=== PATIENT | male | born 1965 ===

== ENCOUNTER 2017-07-27 10:47 | Inpatient (IN) | payer BC, OTHER ==
[2017-07-27] MEDS ORDERED: Sodium Chloride 0.9% 1,000 ML IV STA (11:16)
[2017-07-27 12:34] LABS: BASO # 0.01 K/mm3 (0.0-2.0); BASO % 0.1 % (0.0-3.0); EOS # 0.1 (0.0-0.7); EOS % 1.2 % (1.5-5.0); GRAN # 5.33 (1.4-6.5); GRAN % 70.6 % (50.0-68.0); HEMOGLOBIN 17.8 g/dL (14.0-18.0); LYMPH # 1.2 (1.2-3.4); LYMPH % 16.4 % (22.0-35.0); MEAN CELL VOLUME 90.1 fl (80.0-105.0); MEAN CORPUSCULAR HEMOGLOBIN 31.1 pg (25.0-35.0); MEAN CORPUSCULAR HGB CONC 34.5 g/dl (31.0-37.0); MEAN PLATELET VOLUME 9.5 fl (7.0-11.0); MONO # 0.9 (0.1-0.6); MONO % 11.7 % (1.0-6.0); RBC 5.73 10^6/uL (3.5-6.1); RED CELL DISTRIBUTION WIDTH 13.6 % (11.5-14.5); WHITE BLOOD COUNT 7.6 10^3/ul (4.5-11.0)
[2017-07-27 13:46] LABS: URINE BILIRUBIN SMALL (NEGATIVE); URINE BLOOD SMALL (NEGATIVE); URINE GLUCOSE (UA) NEGATIVE (NEGATIVE); URINE LEUKOCYTE ESTERASE NEGATIVE Leu/uL (NEGATIVE); URINE NITRATE NEGATIVE (NEGATIVE); URINE PROTEIN 30 mg/dL (<30 mg/dL)
[2017-07-27 13:48] LABS: URINE APPEARANCE SL CLOUDY (CLEAR); URINE COLOR YELLOW (YELLOW)
[2017-07-27 13:56] LABS: URINE WBC NEGATIVE /hpf (0-6)
[2017-07-27 14:13] LABS: ALB/GLOB RATIO 1.3 (1.1-1.8); ALBUMIN 4.4 g/dL (3.0-4.8); ALT/SGPT 47 U/L (7-56); AMYLASE 62 U/L (35-125); AST/SGOT 31 U/L (17-59); BLOOD UREA NITROGEN 15 mg/dL (7-21); CALCIUM 9.9 mg/dL (8.4-10.5); GFR AFRICAN-AMERICAN > 60; GFR NON-AFRICAN AMERICAN > 60; LIPASE 27 U/L (23-300)
[2017-07-27] MEDS ORDERED: Iohexol 350 MG/100 ML VIAL ONE (14:17)
--- NOTE | 2017-07-27 15:09 | ED PDOC ---
Arrival/HPI - General Chief Complaint: Abdominal Pain Time Seen by Provider: 07/27/17 11:02 Historian: Patient - History of Present Illness Narrative History of Present Illness (Text): 07/27/17 11:12 A 52 year old male, whose past medical history includes kidney stones, presents to the emergency department complaining of mild diffused abdominal pain and distention for past couple days. Patient reports he went to see Urgent Care 2 days ago for dark urine and was told he has kidney stones. After being taken for Ultrasound, results showed no signs of kidney stones. He also notes experiencing nausea, but denies any hematuria, bloody stool, fever, or any other complaints. Also, patient is passing gas and stool, but in small amounts. No PMD Past Medical History - Provider Review Nursing Documentation Reviewed: Yes - Infectious Disease Hx of Infectious Diseases: None - Renal Hx Kidney Stones: Yes - Psychiatric Hx Substance Use: No Family/Social History - Physician Review Nursing Documentation Reviewed: Yes Family/Social History: No Known Family HX Smoking Status: Never Smoked Hx Alcohol Use: No Hx Substance Use: No Allergies/Home Meds Allergies/Adverse Reactions: Allergies No Known Allergies Allergy (Verified 07/27/17 22:32) Home Medications: Home Meds Medication Instructions Recorded Confirmed Cyclobenzaprine HCl 5 mg PO PRN PRN 07/27/17 07/27/17 [Cyclobenzaprine HCl] Naproxen [Naprosyn] 500 mg PO PRN PRN 07/27/17 07/27/17 Physical Exam Vital Signs Reviewed: Yes Vital Signs Temp Pulse Resp BP Pulse Ox 07/27/17 19:00 98 H 16 163/98 H 100 07/27/17 18:14 98.2 F 101 H 18 170/84 H 97 07/27/17 15:42 95 H 18 145/75 97 07/27/17 13:58 97.9 F 95 H 18 117/101 H 98 07/27/17 11:05 98 F 112 H 16 131/90 97 Temperature: Afebrile Blood Pressure: Normal Pulse: Regular Respiratory Rate: Normal Appearance: Positive for: Well-Appearing Pain Distress: None Mental Status: Positive for: Alert and Oriented X 3 - Systems Exam Respiratory/Chest: Present: Clear to Auscultation, Good Air Exchange. No: Respiratory Distress, Accessory Muscle Use Cardiovascular: Present: Regular Rate and Rhythm, Normal S1, S2. No: Murmurs Abdomen: Present: Tenderness (minimally diffused tenderness), Distention, Normal Bowel Sounds Back: No: CVA Tenderness Medical Decision Making ED Course and Treatment: 07/27/17 11:16 Impression: 52 year old male with mild diffused abdominal pain. Physical exam shows abdomen distended, normal bowel sounds, and minimally diffused tenderness ; no CVA tenderness. Plan: -- Abd/Pelvis CT -- Labs -- Urine Culture -- Reassess and disposition Progress Notes: 07/27/2017 15:34 Abd/Pelvis CT IMPRESSION: Minor bibasilar atelectasis and/or infiltrate changes. There are a multiple small low-attenuation foci scattered throughout the hepatic parenchyma too small characterize; rule out small cysts or hemangiomas. Follow-up CT scan at interval could be performed to assess stability. Suspect minimal fatty hepative infiltration. Multiple distended loops of small bowel some of which exhibit minimal wall thickening with several on loops of collapsed distal small bowel. Findings could represent mild small-bowel obstruction. Surgical consultation recommended. Rule out enteritis with secondary ileus. Follow-up plain film radiographs in 6 hours of could be performed to assess for passage of oral contrast material into the colon. Note also that the appendix is not seen with any certainty. There is small amount of free seen in the pelivs. Two small low-attenuation foci left kidney (too small characterize). Rule out the small hyperdense cyst. Follow-up ultrasound could be performed to exclude any fracisco components. There is also small amount of pernephic fluid upper pole right kidney. Dictator: Angel Su MD - Lab Interpretations Lab Results: 07/27/17 12:15 07/27/17 12:50 Lab Results 07/27/17 13:30: Urine Color Yellow, Urine Appearance Sl cloudy, Urine pH 6.0, Ur Specific [place] 1.025, Urine Protein 30 H, Urine Glucose (UA) Negative, Urine Ketones >=80, Urine Blood Small H, Urine Nitrate Negative, Urine Bilirubin Small H, Urine Urobilinogen 1.0 H, Ur Leukocyte Esterase Negative, Urine RBC 2 - 5, Urine WBC Negative, Urine Other Mucus 07/27/17 12:50: Sodium 139, Potassium 3.7, Chloride 97 L, Carbon Dioxide 29, Anion Gap 17, BUN 15, Creatinine 0.8, Est GFR ( Amer) > 60, Est GFR (Non- Af Amer) > 60, Random Glucose 129 H, Calcium 9.9, Total Bilirubin 0.9, AST 31, ALT 47, Alkaline Phosphatase 76, Total Protein 7.9, Albumin 4.4, Globulin 3.5, Albumin/Globulin Ratio 1.3, Amylase 62, Lipase 27 07/27/17 12:15: WBC 7.6, RBC 5.73, Hgb 17.8, Hct 51.6, MCV 90.1, MCH 31.1, MCHC 34.5, RDW 13.6, Plt Count 254, MPV 9.5, Gran % 70.6 H, Lymph % (Auto) 16.4 L, [place] % (Auto) 11.7 H, Eos % (Auto) 1.2 L, Baso % (Auto) 0.1, Gran # 5.33, Lymph # 1.2, [place] # 0.9 H, Eos # 0.1, Baso # 0.01 I have reviewed the lab results: Yes - RAD Interpretation Radiology Orders: 07/27/17 11:16 ABD PELVIS PO & IV CONTRAST [CT] Stat - Medication Orders Current Medication Orders: Benzocaine/Menthol (Cepacol Sore Throat) 1 farshad MT Q2H PRN PRN Reason: Sore Throat Last Admin: 07/27/17 18:33 Dose: 1 farshad Lactated Ringer's (Lactated Ringer's) 1,000 mls @ 100 mls/hr IV .Q10H BERNARDO Last Admin: 07/27/17 18:14 Dose: 100 mls/hr eMAR Start Stop Document 07/27/17 18:14 SRE (Rec: 07/27/17 18:14 SRE [id number]) Intravenous Solution Start Date 07/27/17 Start Time 18:15 Discontinued Medications Sodium Chloride (Sodium Chloride 0.9%) 1,000 mls @ 1,000 mls/hr IV .Q1H STA Stop: 07/27/17 12:15 Last Admin: 07/27/17 11:56 Dose: 1,000 mls/hr eMAR Start Stop Document 07/27/17 11:56 [place] (Rec: 07/27/17 11:57 [place] [id number] Intravenous Solution Start Date 07/27/17 Start Time 11:57 Lactated Ringer's (Lactated Ringer's) 1,000 mls @ 75 mls/hr IV .[id number] [facility] Ondansetron HCl (Zofran Inj) 4 mg IVP STAT STA Stop: 07/27/17 11:17 Last Admin: 07/27/17 11:57 Dose: 4 mg IVP Administration Document 07/27/17 11:57 [place] (Rec: 07/27/17 11:57 [facility] [place] [facility] [id number] Charges for Administration # of IVP Administrations 1 - Scribe Statement The provider has reviewed the documentation as recorded by the Ángelibe Latha Bowman Provider Scribe Attestation: All medical record entries made by the Scribe were at my direction and personally dictated by me. I have reviewed the chart and agree that the record accurately reflects my personal performance of the history, physical exam, medical decision making, and the department course for this patient. I have also personally directed, reviewed, and agree with the discharge instructions and disposition. Disposition/Present on Arrival - Present on Arrival Any Indicators Present on Arrival: No History of DVT/PE: No History of Uncontrolled Diabetes: No Urinary Catheter: No History of Decub. Ulcer: No History Surgical Site Infection Following: None - Disposition Have Diagnosis and Disposition been Completed?: Yes Diagnosis: Abdominal pain, Abdominal distention Disposition: HOSPITALIZED Disposition Time: 15:30 Condition: STABLE
--- NOTE | 2017-07-27 15:35 | CT ---
PROCEDURE: CT scan abdomen pelvis 07/27/2017 HISTORY: Abdominal al distention- diffuse a abdominal tenderness COMPARISON: No prior study available for comparison TECHNIQUE: Contiguous axial images of the abdomen abdomen pelvis performed following oral and intravenous injection of approximately 100 cc Omnipaque 350 contrast material. Additional sagittal and coronal reformats generated. Radiation dose: Total exam DLP = 681.38 mGy-cm. This CT exam was performed using one or more of the following dose reduction techniques: Automated exposure control, adjustment of the mA and/or kV according to patient size, and/or use of iterative reconstruction technique. FINDINGS: LOWER THORAX: Scattered areas of atelectasis and or scarring both lung bases. . No effusion. No evidence of basilar pneumothorax. LIVER: The liver exhibits normal size measuring nearly 17 cm in CC dimension. The suspect minor diffuse fatty hepatic infiltration. There are several subcentimeter round/elliptical shaped foci of low attenuation scattered throughout the hepatic parenchyma too small to characterize. Foci may represent tiny cysts or hemangiomas. Followup interval recommended to assess stability. Portal and splenic veins are opacified GALLBLADDER AND BILE DUCTS: Gallbladder is physiologically distended. No evidence intraluminal gallbladder calculi. PANCREAS: Unremark the pancreas is somewhat atrophic and slightly fatty replaced. No obvious pancreatic masses collections or calcifications. SPLEEN: Spleen exhibits normal size and attenuation pattern without mass collection or calcification. ADRENALS: No adrenal lesions. . KIDNEYS AND URETERS: Kidneys demonstrate relatively symmetric nephrograms. No evidence of nephrolithiasis or hydronephrosis. . Small amount of right-sided perinephric fluid upper pole right kidney nonspecific. There are 2 small low-attenuation foci seen left kidney 1 in the posterolateral cortex mid to lower pole measuring 6.4 mm and another anterior midpole measuring approximately 6.2 mm too small to characterize though Hounsfield units range in the mid 20s and mid lower 50s respectively. Findings could represent hyperdense cysts however solid lesions cannot be excluded. Followup ultrasound recommended to exclude any solid components. BLADDER: Urinary bladder is incompletely distended which presumably accounts for slight thick-walled appearance. Cystitis would be less likely in a male patient no not completely excluded. Recommend correlation urinalysis. REPRODUCTIVE: Prostate gland measures approximately 3.9 cm in transverse dimension. APPENDIX: The appendix in not seen with complete certainty. BOWEL: Evaluation of the bowel is somewhat limited due to incomplete opacification. The stomach is markedly distended obtaining the liquid contrast material and air. Multiple distended loops of small bowel some of which exhibit minimal wall thickening with several on loops of collapsed distal small bowel. Several loops of distended small bowel exhibit what are felt to represent air within valulae conniventes and not pneumatosis intestinalis. Findings could represent mild small-bowel obstruction. Surgical consultation recommended. Rule out enteritis with secondary ileus. Followup plain film radiographs in 6 hours of could be performed to assess for passage of oral contrast material into the colon. . Note also that the appendix is not seen with any certainty. No definitive mural wall thickening of the colon. PERITONEUM: Ascites is present within the pelvis which is abnormal in a male patient. . LYMPH NODES: Unremarkable. No enlarged lymph nodes. VASCULATURE: Unremarkable. No aortic aneurysm. BONES: Minor multilevel degenerative spondylosis of the lower thoracic and lumbar spine. OTHER FINDINGS: None. IMPRESSION: Minor bibasilar atelectasis and or infiltrate changes. There are a multiple small low-attenuation foci scattered throughout the hepatic parenchyma too small characterize; rule out small cysts or hemangiomas. Followup the CT scan at interval could be performed to assess stability. Suspect minimal fatty hepatic infiltration. Multiple distended loops of small bowel some of which exhibit minimal wall thickening with several on loops of collapsed distal small bowel. . Findings could represent mild small-bowel obstruction. Surgical consultation recommended. Rule out enteritis with secondary ileus. Followup plain film radiographs in 6 hours of could be performed to assess for passage of oral contrast material into the colon. . Note also that the appendix is not seen with any certainty. There is small amount of free fluid seen in the pelvis Two small low-attenuation foci left kidney (too small characterize). Rule out the small hyperdense cyst. Followup ultrasound could be performed to exclude any solid components. There is also small amount of perinephric fluid upper pole right kidney. . Findings discussed with Dr. Rao at approximately 3:30 p.m. with written down and read back verification.
--- NOTE | 2017-07-27 16:26 | CP.PCM.CON ---
History of Present Illness - History of Present Illness History of Present Illness: 52 year old male with no past medical history except for shingles or abdominal surgeries who presents with 3 days of worsening abdominal distension, right sided flank pain, chills, increased bloating, anorexia, some diarrhea, and difficulty passing bowel movements and flatus. He reports his symptoms started on Tuesday after eating home-cooked hamburgers. He reports going to an urgent care on Tuesday and being diagnosed with kidney stones based on his UA, though they performed an US that did not identify any stones in the kidney/ureters, and informed him that he likely already passed a kidney stone. He was given an IM shot of something for pain and sent home with Flexeril and an NSAID. He reports having similar episodes of abdominal distension in the past that he was able to overcome by forcefully passing gas. This time, however, he is far more concerned given his inability to pass much gas, and having reflux/heart burn like symptoms which he has never experienced in the past He admits to passing his BM regularly, first thing in the morning everyday. He denies fever, chills, weight-loss. 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[employer]), denies tobacco or illicit drug use, admits to drinking alcoholly social Review of Systems - Review of Systems All systems: reviewed and no additional remarkable complaints except Review of Systems: as per hpi Past Patient History - Infectious Disease Hx of Infectious Diseases: None - Past Social History Smoking Status: Never Smoked - RENAL Hx Kidney Stones: Yes - PSYCHIATRIC Hx Substance Use: No - SURGICAL HISTORY Hx Surgeries: No Meds Allergies/Adverse Reactions: Allergies Allergy/AdvReac Type Severity Reaction Status Date / Time No Known Allergies Allergy Verified 07/27/17 11:09 Physical Exam - Constitutional Appears: Non-toxic - Head Exam Head Exam: ATRAUMATIC, NORMOCEPHALIC - Eye Exam Eye Exam: EOMI, Normal appearance. absent: Scleral icterus - ENT Exam ENT Exam: Mucous Membranes Moist, Normal Oropharynx - Neck Exam Neck exam: Positive for: Normal Inspection - Respiratory Exam Respiratory Exam: NORMAL BREATHING PATTERN. absent: Accessory Muscle Use - Cardiovascular Exam Cardiovascular Exam: Tachycardia, RRR, +S1, +S2 - GI/Abdominal Exam GI & Abdominal Exam: Distended, Firm. absent: Guarding - Extremities Exam Extremities exam: Positive for: normal inspection, pedal pulses present. Negative for: calf tenderness, pedal edema - Back Exam Back exam: NORMAL INSPECTION. absent: CVA tenderness (L), CVA tenderness (R) - Neurological Exam Neurological exam: Alert, CN II-XII Intact, Oriented x3 - Psychiatric Exam Psychiatric exam: Normal Affect, Normal Mood - Skin Skin Exam: Dry, Intact, Normal Color, Warm Results - Vital Signs Recent Vital Signs: Last Vital Signs Temp 97.9 F 07/27/17 13:58 Pulse 95 H 07/27/17 15:42 Resp 18 07/27/17 15:42 BP 145/75 07/27/17 15:42 Pulse Ox 97 07/27/17 15:42 - Labs Result Diagrams: 07/27/17 12:15 07/27/17 12:50 Labs: Laboratory Results - last 24 hr 07/27/17 07/27/17 07/27/17 12:15 12:50 13:30 WBC 7.6 RBC 5.73 Hgb 17.8 Hct 51.6 MCV 90.1 MCH 31.1 MCHC 34.5 RDW 13.6 Plt Count 254 MPV 9.5 Gran % 70.6 H Lymph % (Auto) 16.4 L [place] % (Auto) 11.7 H Eos % (Auto) 1.2 L Baso % (Auto) 0.1 Gran # 5.33 Lymph # 1.2 [place] # 0.9 H Eos # 0.1 Baso # 0.01 Sodium 139 Potassium 3.7 Chloride 97 L Carbon Dioxide 29 Anion Gap 17 BUN 15 Creatinine 0.8 Est GFR ( Amer) > 60 Est GFR (Non-Af Amer) > 60 Random Glucose 129 H Calcium 9.9 Total Bilirubin 0.9 AST 31 ALT 47 Alkaline Phosphatase 76 Total Protein 7.9 Albumin 4.4 Globulin 3.5 Albumin/Globulin Ratio 1.3 Amylase 62 Lipase 27 Urine Color Yellow Urine Appearance Sl cloudy Urine pH 6.0 Ur Specific [place] 1.025 Urine Protein 30 H Urine Glucose (UA) Negative Urine Ketones >=80 Urine Blood Small H Urine Nitrate Negative Urine Bilirubin Small H Urine Urobilinogen 1.0 H Ur Leukocyte Esterase Negative Urine RBC 2 - 5 Urine WBC Negative Urine Other Mucus Assessment & Plan - Assessment and Plan (Free Text) Assessment: 52 year old male with no significant past medical history who presents with 3 days of nausea, abdominal distension, difficulty passing flatus, and recently diagnosed with kidney stones. CT abdomen and pelvis showed dilated loops of small bowel and in the stomach. Plan: - NGT placed, fluid drained, 400 mL plus fluid drained - Cepacol PRN - Zofran PRN - Case discussed with attending, Dr. Christianson - Date & Time Date: 07/27/17 Time: 05:00
[2017-07-27] MEDS ORDERED: Lactated Ringer's 1,000 ML IV SCH (17:45)
[2017-07-27] MEDS: Lactated Ringer's 1,000 ML IV SCH (18:14)
[2017-07-27] MEDS: Benzocaine/Menthol (Cepacol) Lozenge MT PRN (18:33)
[2017-07-27 23:24] VITALS: BMI 26.6
[2017-07-27] MEDS ORDERED: Pneumococcal 23-Valent Vaccine IM ONE (23:24)
[2017-07-27] MEDS ORDERED: Influenza Vaccine 60 mcg/0.5 mL SYR (4YR UP) IM ONE (23:24)
[2017-07-28] MEDS: Benzocaine/Menthol (Cepacol) Lozenge MT PRN (01:56)
[2017-07-28] MEDS: Lactated Ringer's 1,000 ML IV SCH (04:00)
[2017-07-28 07:06] LABS: BASO # 0.02 K/mm3 (0.0-2.0); BASO % 0.4 % (0.0-3.0); EOS # 0.1 (0.0-0.7); EOS % 2.5 % (1.5-5.0); GRAN # 3.01 (1.4-6.5); GRAN % 58.6 % (50.0-68.0); LYMPH # 1.2 (1.2-3.4); LYMPH % 23.9 % (22.0-35.0); MEAN CELL VOLUME 91.9 fl (80.0-105.0); MEAN CORPUSCULAR HEMOGLOBIN 30.1 pg (25.0-35.0); MEAN CORPUSCULAR HGB CONC 32.8 g/dl (31.0-37.0); MEAN PLATELET VOLUME 9.3 fl (7.0-11.0); MONO # 0.8 (0.1-0.6); MONO % 14.6 % (1.0-6.0); RBC 4.68 10^6/uL (3.5-6.1); RED CELL DISTRIBUTION WIDTH 13.6 % (11.5-14.5); WHITE BLOOD COUNT 5.1 10^3/ul (4.5-11.0)
[2017-07-28 07:18] LABS: HEMOGLOBIN 14.1 g/dL (14.0-18.0)
[2017-07-28 07:35] LABS: BLOOD UREA NITROGEN 11 mg/dL (7-21); GFR AFRICAN-AMERICAN > 60; GFR NON-AFRICAN AMERICAN > 60
[2017-07-28 08:38] VITALS: RESP 20
--- NOTE | 2017-07-28 09:18 | CP.PCM.HP ---
History of Present Illness - History of Present Illness History of Present Illness: 52 year old male with a past medical history significant for shingles and hemmorhoids who presents with 3 days of worsening abdominal distension, right sided flank pain, chills, and difficulty passing bowel movements and flatus. He reports his symptoms started on Tuesday after eating home-cooked hamburgers. He reports going to an urgent care on Tuesday and being diagnosed with kidney stones based on his UA. He states he was then recommended to go to an imaging center where he went an obtained an ultrasound that did not identify any stones in the kidney/ureters, and was informed that he likely already passed a kidney stone. He was sent home with Flexeril and an NSAID. His symptoms, however, persisted, and he came to [facility] [place]. He reports having similar episodes of abdominal distension in the past that normally resolved by forcefully passing gas. This time, however, he is far more concerned given his inability to pass gas and new-onset heart burn like symptoms which he has never experienced. He states passing bowel movements, regularly, first thing every morning. He also admits to nausea, decreased appetite, and orange-colored urine. He denies fever, chills, weight-loss, hemotochezia. 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 Present on Admission - Present on Admission Any Indicators Present on Admission: No Review of Systems - Constitutional Constitutional: Anorexia, Chills. absent: Night Sweats, Weight Loss - EENT Eyes: absent: Decreased Night Vision, Itchy Eyes, Loss of Peripheral Vision Ears: absent: Ear Pain, Tinnitus, Dizziness Nose/Mouth/Throat: absent: Post Nasal Drip, Sinus Pressure, Bleeding Gums - Cardiovascular Cardiovascular: absent: Chest Pain, Diaphoresis, Dyspnea - Respiratory Respiratory: absent: Dyspnea, Pain with Coughing - Gastrointestinal Gastrointestinal: Bloating, Change in Stool Character, Dyspepsia, Excessive Flatus - Genitourinary Genitourinary: Voiding Freq/Small Amts - Musculoskeletal Musculoskeletal: absent: Muscle Cramps, Muscle Weakness - Integumentary Integumentary: absent: Non-Healing Lesions, Photosensitivity, Jaundice - Neurological Neurological: absent: Abnormal Gait, Behavioral Changes, Burning Sensations, Focal Weakness - Psychiatric Psychiatric: absent: Abnormal Sleep Pattern, Behavioral Changes, Depression - Endocrine Endocrine: Fatigue. absent: Change in Body Appearance, Change in Libido - Hematologic/Lymphatic Hematologic: absent: Easy Bleeding, Easy Bruising Past Patient History - Infectious Disease Hx of Infectious Diseases: None - Past Social History Smoking Status: Never Smoked - CARDIAC Hx Cardiac Disorders: No - PULMONARY Hx Respiratory Disorders: No - NEUROLOGICAL Hx Neurological Disorder: No - HEENT Hx HEENT Problems: No - RENAL Hx Chronic Kidney Disease: Yes Hx Kidney Stones: Yes - ENDOCRINE/METABOLIC Hx Endocrine Disorders: No - HEMATOLOGICAL/ONCOLOGICAL Hx Blood Disorders: Yes Hx Shingles: Yes (06/2017) - INTEGUMENTARY Hx Dermatological Problems: Yes Other/Comment: 07-27-17 scarring from shingles 06-19 - MUSCULOSKELETAL/RHEUMATOLOGICAL Hx Musculoskeletal Disorders: No Hx Falls: No - GASTROINTESTINAL Hx Gastrointestinal Disorders: Yes (fluid filled loops of small bowel in the stomach.ileus?enteritis?) - GENITOURINARY/GYNECOLOGICAL Hx Genitourinary Disorders: No - PSYCHIATRIC Hx Psychophysiologic Disorder: No Hx Substance Use: No - SURGICAL HISTORY Hx Surgeries: Yes (right shoulder athroscopy.) Meds Allergies/Adverse Reactions: Allergies Allergy/AdvReac Type Severity Reaction Status Date / Time No Known Allergies Allergy Verified 07/27/17 23:00 Physical Exam - Constitutional Appears: Non-toxic - Head Exam Head Exam: ATRAUMATIC, NORMOCEPHALIC - Eye Exam Eye Exam: EOMI, Normal appearance - ENT Exam ENT Exam: Mucous Membranes Moist, Normal Oropharynx - Neck Exam Neck exam: Positive for: Normal Inspection. Negative for: Lymphadenopathy - Respiratory Exam Respiratory Exam: Wheezes (scattered), NORMAL BREATHING PATTERN. absent: Accessory Muscle Use - Cardiovascular Exam Cardiovascular Exam: Tachycardia, +S1, +S2 - GI/Abdominal Exam GI & Abdominal Exam: Distended, Normal Bowel Sounds. absent: Guarding, Rebound - Rectal Exam Rectal Exam: Deferred - Extremities Exam Extremities exam: Positive for: normal inspection. Negative for: calf tenderness - Back Exam Back exam: NORMAL INSPECTION. absent: CVA tenderness (L), CVA tenderness (R) - Neurological Exam Neurological exam: Alert, CN II-XII Intact, Oriented x3 - Psychiatric Exam Psychiatric exam: Normal Affect, Normal Mood - Skin Skin Exam: Dry, Intact, Normal Color, Warm Results - Vital Signs Recent Vital Signs: Last Vital Signs Temp 97.4 F L 07/28/17 08:37 Pulse 91 H 07/28/17 08:37 Resp 20 07/28/17 08:37 BP 130/82 07/28/17 08:37 Pulse Ox 95 07/28/17 08:37 - Labs Result Diagrams: 07/28/17 06:00 07/28/17 06:00 Labs: Laboratory Results - last 24 hr 07/28/17 07/28/17 07/28/17 06:00 06:00 07:52 WBC 5.1 D RBC 4.68 Hgb 14.1 D Hct 43.0 MCV 91.9 MCH 30.1 MCHC 32.8 RDW 13.6 Plt Count 237 MPV 9.3 Gran % 58.6 Lymph % (Auto) 23.9 [place] % (Auto) 14.6 H Eos % (Auto) 2.5 Baso % (Auto) 0.4 Gran # 3.01 Lymph # 1.2 [place] # 0.8 H Eos # 0.1 Baso # 0.02 Sodium 140 Potassium 3.9 Chloride 101 Carbon Dioxide 29 Anion Gap 15 BUN 11 Creatinine 0.8 Est GFR ( Amer) > 60 Est GFR (Non-Af Amer) > 60 POC Glucose (mg/dL) 103 Random Glucose 105 Calcium 9.0 Assessment & Plan - Assessment and Plan (Free Text) Assessment: 52 year old male with a past medical history significant for shingles and hemmorhoids who presents with 3 days of worsening abdominal distension, right sided flank pain, chills, and difficulty passing bowel movements and flatus. CT abdomen and pelvis showed findings concerning for SBO. Plan: 1) Small bowel obstruction versus adynamic illeus - NGT placement placed, greater than 400 mL of tea-colored fluid obtained immediately - Serial abdominal exams - Vital Signs q4h - Anti-emetic/analgesic PRN 2) Nephrolithiasis - Consider abdominal US to look at kidney, ureters, bladder once bowel is less distended - Consider 0.4 mg Tamsulosin to encourage calculi - Strain urine for calculi 3) DVT prophylaxis - Sequential compression device
--- NOTE | 2017-07-28 09:22 | CP.PCM.PN ---
Subjective - Date & Time of Evaluation Date of Evaluation: 07/28/17 Time of Evaluation: 08:05 - Subjective Subjective: General Surgery Progress Note for Dr. Christianson Patient seen and examined at bedside. Patient reports having one bowel movement at 9:00 PM. Also reports passing flatus, but complains of the right sided flank pain and chills overnight. He reports decreased urination and denies passing any stones in his urine. He report that his abdominal distention has decreased significantly and during the day had an episode of diarrhea. Since admission, patient's NG output is estimated to be 1,400 mL of tea-colored fluid. Objective - Vital Signs/Intake and Output Vital Signs (last 24 hours): Temp Pulse Resp BP Pulse Ox 97.4 F L 91 H 20 130/82 95 07/28/17 08:37 07/28/17 08:37 07/28/17 08:37 07/28/17 08:37 07/28/17 08:37 - Medications Medications: Current Medications Benzocaine/Menthol (Cepacol Sore Throat) 1 farshad MT Q2H PRN PRN Reason: Sore Throat Last Admin: 07/28/17 01:56 Dose: 1 farshad Lactated Ringer's (Lactated Ringer's) 1,000 mls @ 100 mls/hr IV .Q10H BERNARDO Last Admin: 07/28/17 04:00 Dose: 100 mls/hr - Labs Labs: 07/28/17 06:00 07/28/17 06:00 - Constitutional Appears: Non-toxic - Head Exam Head Exam: ATRAUMATIC, NORMOCEPHALIC - Eye Exam Eye Exam: EOMI, Normal appearance - ENT Exam ENT Exam: Mucous Membranes Dry, Normal Oropharynx - Neck Exam Neck Exam: Normal Inspection - Respiratory Exam Respiratory Exam: Prolonged Expiratory Phase, NORMAL BREATHING PATTERN. absent : Accessory Muscle Use - Cardiovascular Exam Cardiovascular Exam: Tachycardia, +S1, +S2 - GI/Abdominal Exam GI & Abdominal Exam: Soft, Hypoactive Bowel Sounds. absent: Guarding, Rebound - Extremities Exam Extremities Exam: Normal Capillary Refill, Normal Inspection. absent: Calf Tenderness - Back Exam Back Exam: NORMAL INSPECTION. absent: CVA tenderness (L), CVA tenderness (R) - Neurological Exam Neurological Exam: Alert, Awake, Oriented x3 - Psychiatric Exam Psychiatric exam: Normal Affect, Normal Mood - Skin Skin Exam: Dry, Intact, Normal Color, Warm Assessment and Plan - Assessment and Plan (Free Text) Assessment: 52 year old with SBO versus adynamic illeus Plan: 1) Small bowel obstruction versus adynamic illeus - NGT decompression, greater than 1.4 L overnight - pt clincally improved, will clamp NGT and advance diet as tolerated 2) Possible nephrolithiasis - Zofran 4 mg q4h PRN for nausea - Toradol 30 mg q4h PRN for severe pain 3) DVT prophylaxis - Sequential compression device Case discussed with attending, Dr. Christianson.
[2017-07-28] MEDS: Dextrose 5%/0.45% NS 1,000 ML IV SCH (16:06)
[2017-07-28] MEDS ORDERED: DiphenhydrAMINE 12.5 mg/5 ml LIQ UD (5 ml) PO PRN (17:02)
[2017-07-29 07:07] LABS: BASO # 0.08 K/mm3 (0.0-2.0); BASO % 1.4 % (0.0-3.0); EOS # 0.1 (0.0-0.7); EOS % 2.5 % (1.5-5.0); GRAN # 3.27 (1.4-6.5); GRAN % 57.9 % (50.0-68.0); HEMOGLOBIN 14.1 g/dL (14.0-18.0); LYMPH # 1.3 (1.2-3.4); LYMPH % 22.1 % (22.0-35.0); MEAN CELL VOLUME 91.9 fl (80.0-105.0); MEAN CORPUSCULAR HGB CONC 32.6 g/dl (31.0-37.0); MEAN PLATELET VOLUME 9.2 fl (7.0-11.0); MONO # 0.9 (0.1-0.6); MONO % 16.1 % (1.0-6.0); RBC 4.7 10^6/uL (3.5-6.1); RED CELL DISTRIBUTION WIDTH 13.1 % (11.5-14.5); WHITE BLOOD COUNT 5.7 10^3/ul (4.5-11.0)
[2017-07-29] MEDS: Dextrose 5%/0.45% NS 1,000 ML IV SCH (07:13)
[2017-07-29 07:44] LABS: ALB/GLOB RATIO 1.3 (1.1-1.8); ALBUMIN 3.5 g/dL (3.0-4.8); ALT/SGPT 37 U/L (7-56); AST/SGOT 25 U/L (17-59); BLOOD UREA NITROGEN 7 mg/dL (7-21); CALCIUM 9.3 mg/dL (8.4-10.5); GFR AFRICAN-AMERICAN > 60; GFR NON-AFRICAN AMERICAN > 60
--- NOTE | 2017-07-29 10:34 | RAD ---
HISTORY: Evaluate small bowel obstruction. COMPARISON: 07/27/2013 CT abdomen and pelvis. Summary of findings on the comparison examination: Multiple distended loops of small bowel with distal collapsed small bowel consistent with small bowel obstruction. FINDINGS: BOWEL: Persistent dilatation of proximal and mid small bowel loops. Thickening of the bowel wall, edema of again identified. However, the degree of distention of distal small bowel loops has improved in the colon, filled with contrast from prior CT scan, is decompressed BONES: Normal. OTHER FINDINGS: . Nasogastric tube in the in the stomach which is decompressed. IMPRESSION: Interval improvement without resolution of small bowel obstruction
[2017-07-29] MEDS ORDERED: Potassium Chloride 20 mEq ER Tab PO ONE (11:08)
[2017-07-29] MEDS ORDERED: Sodium Chloride 0.9% 1,000 ML IV SCH (11:15)
--- NOTE | 2017-07-29 11:24 | CP.PCM.PN ---
Subjective - Date & Time of Evaluation Date of Evaluation: 07/29/17 Time of Evaluation: 07:45 - Subjective Subjective: General surgery Progress Note for Dr. Christianson Patient seen and examined at bedside. Patient is passing bowel movements, reports increase in urination, tolerated clear liquids, and reports feeling similar right-sided flank pain. Patient denies nausea, vomiting, diarrhea, or hemaotchezia. Nurse report no events overnight. Objective - Vital Signs/Intake and Output Vital Signs (last 24 hours): Temp Pulse Resp BP Pulse Ox 98.9 F 81 20 128/89 96 07/29/17 06:00 07/29/17 06:00 07/29/17 06:00 07/29/17 06:00 07/29/17 06:00 Intake and Output: 07/29/17 07/29/17 06:59 18:59 Intake Total 620 Output Total 600 Balance 20 - Medications Medications: Current Medications Acetaminophen (Tylenol 325mg Tab) 650 mg PO Q6H PRN PRN Reason: Fever >100.4 F Benzocaine/Menthol (Cepacol Sore Throat) 1 farshad MT Q2H PRN PRN Reason: Sore Throat Last Admin: 07/28/17 01:56 Dose: 1 farshad Diphenhydramine HCl (Benadryl) 12.5 mg PO HS PRN PRN Reason: Insomnia Sodium Chloride (Sodium Chloride 0.9%) 1,000 mls @ 100 mls/hr IV .Q10H BERNARDO Ketorolac Tromethamine (Toradol) 30 mg IVP Q4H PRN PRN Reason: Pain, severe (8-10) Ondansetron HCl (Zofran Inj) 4 mg IVP Q4H PRN PRN Reason: Nausea/Vomiting - Labs Labs: 07/29/17 06:00 07/29/17 06:00 - Constitutional Appears: Well, Non-toxic - Head Exam Head Exam: ATRAUMATIC, NORMOCEPHALIC - Eye Exam Eye Exam: EOMI, Normal appearance, PERRL - ENT Exam ENT Exam: Mucous Membranes Moist, Normal Oropharynx - Respiratory Exam Respiratory Exam: Clear to Ausculation Bilateral, NORMAL BREATHING PATTERN - Cardiovascular Exam Cardiovascular Exam: Tachycardia, +S1, +S2 - GI/Abdominal Exam GI & Abdominal Exam: Distended. absent: Tenderness, Rebound - Extremities Exam Extremities Exam: Normal Capillary Refill, Normal Inspection - Back Exam Back Exam: absent: CVA tenderness (L), CVA tenderness (R) - Neurological Exam Neurological Exam: Alert, Awake, CN II-XII Intact, Oriented x3 - Psychiatric Exam Psychiatric exam: Normal Affect, Normal Mood - Skin Skin Exam: Dry, Intact, Normal Color, Warm Assessment and Plan - Assessment and Plan (Free Text) Assessment: 52 year old with no past medical history who presents with 3 days of abdominal distension, difficulty passing flatus, and right sided flank pain. Plan: - NGT removed 1.4 L of fluid - Upright abdominal film shows interval improvement without resolution of small bowel obstruction - Patient tolerated clear and full liquid diet; passing formed bowel movements and flatus; clinically, has improved, but does complain of right-sided flank pain, and increased urination. -GI consulted, will follow up with recommendations
--- NOTE | 2017-07-29 15:46 | CP.PCM.CON ---
<Melly Feliciano - Last Filed: 07/29/17 15:40> History of Present Illness - History of Present Illness History of Present Illness: Seen and examined at the bedside earlier today, chart reviewed. Request for GI consult is for SBO, adynamic ileus evaluation for colon/EGD. HPI: This is a 52-year-old male with a medical history of shingles from hemorrhoids came to the emergency room with complaints of worsening abdominal distention and right-sided flank pain 3 days. The patient also complained of having chills and difficulty having bowel movement and flatus. The patient states that his symptoms started on Tuesday, he recalled eating home-cooked hamburgers but stated that his family members ate the same and they are okay. He went to urgent care on Tuesday and was told he had kidney stones after urinalysis. He was sent home on Flexeril and NSAIDs which he hasn't taken and was recommended to have an ultrasound which was negative for renal stones. His pain did not subside and came to [facility] for further evaluation. The patient states that he usually moves his bowels regular, occasionally may notice some blood, states that he has history of hemorrhoids and that his stool was hard at 1. secondary to his dietary intake. Since his admission he has had bowel movements that are formed, his last bowel movement was yesterday he has not noted any blood. His last episode of noting blood was a week ago. He reports that initially prior to admission he was having difficulty passing urine and now he is having increased urine output. He is straining and urine. He denies any dysuria, hesitancy or hematuria. patient also complaining of recent heartburn, he states that this started with his current complaints otherwise he has never experienced this before. No current nausea or vomiting, he is tolerating the clear liquids. He still complaining of abdominal distention but states that it is much improved since he came to the hospital. His last colonoscopy was about 5 years ago, this was done in short pills, he is not certain of the machine cell tuber but does not recall any findings such as polyps. Denies having endoscopy. On admission he had a CT scan of abdomen and pelvis with IV and oral contrast and this showed multiple distended loops of the small bowel with some minimal wall thickening with several loops of collapsed distal small bowel findings could represent mild small bowel obstruction, rule out enteritis with secondary ileus. He has also noted to have 2 small low attenuation foci left kidney rule out small hyperdense cyst.this patient had a abdominal x-ray yesterday and that showed internal improvement but no resolution of the small bowel obstruction. Past medical history: Shingles, hemorrhoidsnone Surgical history: Denies cardiac or abdominal surgery, right shoulder arthroscopy surgery, colonoscopies 3, most recent was 5 years agodenies any history of colon polyps Allergies: No known drug allergies Family history: Colon cancer: Father's brother/mother's brother, mother history of small bowel obstruction needing surgery, hypertension dyslipidemia Social history: Denies tobacco use, Noe alcohol socially, denies recreational drug use Medications: Reviewed as per MAR ROS: Systems reviewed and positive findings see HPI Past Patient History - Infectious Disease Hx of Infectious Diseases: None - Past Social History Smoking Status: Never Smoked - CARDIAC Hx Cardiac Disorders: No - PULMONARY Hx Respiratory Disorders: No - NEUROLOGICAL Hx Neurological Disorder: No - HEENT Hx HEENT Problems: No - RENAL Hx Chronic Kidney Disease: Yes Hx Kidney Stones: Yes - ENDOCRINE/METABOLIC Hx Endocrine Disorders: No - HEMATOLOGICAL/ONCOLOGICAL Hx Blood Disorders: Yes Hx Shingles: Yes (06/2017) - INTEGUMENTARY Hx Dermatological Problems: Yes Other/Comment: 07-27-17 scarring from shingles 06-19 - MUSCULOSKELETAL/RHEUMATOLOGICAL Hx Musculoskeletal Disorders: No Hx Falls: No - GASTROINTESTINAL Hx Gastrointestinal Disorders: Yes (fluid filled loops of small bowel in the stomach.ileus?enteritis?) - GENITOURINARY/GYNECOLOGICAL Hx Genitourinary Disorders: No - PSYCHIATRIC Hx Psychophysiologic Disorder: No Hx Substance Use: No - SURGICAL HISTORY Hx Surgeries: Yes (right shoulder athroscopy.) Meds Home Medications: Home Medication List Medication Instructions Recorded Confirmed Type Vancomycin HCl [Vancocin HCl] 250 mg PO QID #56 capsule 07/29/17 Rx Allergies/Adverse Reactions: Allergies Allergy/AdvReac Type Severity Reaction Status Date / Time No Known Allergies Allergy Verified 07/27/17 23:00 - Medications Medications: Current Medications Acetaminophen (Tylenol 325mg Tab) 650 mg PO Q6H PRN PRN Reason: Fever >100.4 F Benzocaine/Menthol (Cepacol Sore Throat) 1 farshad MT Q2H PRN PRN Reason: Sore Throat Last Admin: 07/28/17 01:56 Dose: 1 farshad Diphenhydramine HCl (Benadryl) 12.5 mg PO HS PRN PRN Reason: Insomnia Sodium Chloride (Sodium Chloride 0.9%) 1,000 mls @ 100 mls/hr IV .Q10H BERNARDO Last Admin: 07/29/17 13:39 Dose: 100 mls/hr Ketorolac Tromethamine (Toradol) 30 mg IVP Q4H PRN PRN Reason: Pain, severe (8-10) Ondansetron HCl (Zofran Inj) 4 mg IVP Q4H PRN PRN Reason: Nausea/Vomiting Physical Exam - Constitutional Appears: No Acute Distress - Head Exam Head Exam: NORMOCEPHALIC - Eye Exam Eye Exam: Normal appearance. absent: Scleral icterus - ENT Exam ENT Exam: Mucous Membranes Moist - Neck Exam Neck exam: Positive for: Normal Inspection - Respiratory Exam Respiratory Exam: Clear to Auscultation Bilateral, NORMAL BREATHING PATTERN. absent: Respiratory Distress - Cardiovascular Exam Cardiovascular Exam: +S1, +S2 - GI/Abdominal Exam GI & Abdominal Exam: Distended, Hypoactive Bowel Sounds, Soft. absent: Guarding , Rebound, Tenderness Additional comments: right flank tenderness - Rectal Exam Rectal Exam: NORMAL INSPECTION. absent: Black Stool, Bloody Stool - Extremities Exam Extremities exam: Positive for: pedal pulses present. Negative for: calf tenderness, pedal edema - Neurological Exam Neurological exam: Alert, Oriented x3 - Skin Skin Exam: Dry, Warm Results - Vital Signs Recent Vital Signs: Last Vital Signs Temp 98.9 F 07/29/17 06:00 Pulse 81 07/29/17 06:00 Resp 20 07/29/17 06:00 BP 128/89 07/29/17 06:00 Pulse Ox 96 07/29/17 06:00 - Labs Result Diagrams: 07/29/17 06:00 07/29/17 06:00 Labs: Laboratory Results - last 24 hr 07/28/17 07/28/17 07/29/17 16:41 22:05 06:00 WBC 5.7 RBC 4.70 Hgb 14.1 Hct 43.2 MCV 91.9 MCH 30.0 MCHC 32.6 RDW 13.1 Plt Count 245 MPV 9.2 Gran % 57.9 Lymph % (Auto) 22.1 Terry % (Auto) 16.1 H Eos % (Auto) 2.5 Baso % (Auto) 1.4 Gran # 3.27 Lymph # 1.3 Terry # 0.9 H Eos # 0.1 Baso # 0.08 Sodium Potassium Chloride Carbon Dioxide Anion Gap BUN Creatinine Est GFR ( Amer) Est GFR (Non-Af Amer) POC Glucose (mg/dL) 151 H 114 H Random Glucose Calcium Total Bilirubin AST ALT Alkaline Phosphatase Total Protein Albumin Globulin Albumin/Globulin Ratio 07/29/17 07/29/17 07/29/17 06:00 07:39 11:18 WBC RBC Hgb Hct MCV MCH MCHC RDW Plt Count MPV Gran % Lymph % (Auto) Terry % (Auto) Eos % (Auto) Baso % (Auto) Gran # Lymph # Terry # Eos # Baso # Sodium 137 Potassium 3.5 L Chloride 100 Carbon Dioxide 27 Anion Gap 13 BUN 7 Creatinine 0.8 Est GFR ( Amer) > 60 Est GFR (Non-Af Amer) > 60 POC Glucose (mg/dL) 120 H 100 Random Glucose 109 Calcium 9.3 Total Bilirubin 0.8 AST 25 ALT 37 Alkaline Phosphatase 49 Total Protein 6.3 Albumin 3.5 Globulin 2.8 Albumin/Globulin Ratio 1.3 Assessment & Plan - Assessment and Plan (Free Text) Assessment: ASSESSMENT: Abdominal Distention Partial SBO, s/p NG tube R sided Flank pain? nephrolithiasis H/O Shingles Hemorrhoids PLAN: on clear liquid on IVF pain mgt monitor electrolytes stool culture pending patient may benefit from elective endoscopic workup( egd/colon), discussed with patient. Thank you for this consult and for allowing us to participate in your patient care. Seen and discussed w/ Dr. Concepcion. <Floyd Concepcion V - Last Filed: 07/30/17 20:22> Results - Vital Signs Recent Vital Signs: Last Vital Signs Temp 99.2 F 07/29/17 16:00 Pulse 79 07/29/17 16:00 Resp 20 07/29/17 16:00 BP 126/85 07/29/17 16:00 Pulse Ox 99 07/29/17 16:00 - Labs Result Diagrams: 07/29/17 06:00 07/29/17 06:00 Labs: Laboratory Results - last 24 hr 07/29/17 07/29/17 07/29/17 06:00 06:00 07:39 WBC 5.7 RBC 4.70 Hgb 14.1 Hct 43.2 MCV 91.9 MCH 30.0 MCHC 32.6 RDW 13.1 Plt Count 245 MPV 9.2 Gran % 57.9 Lymph % (Auto) 22.1 Terry % (Auto) 16.1 H Eos % (Auto) 2.5 Baso % (Auto) 1.4 Gran # 3.27 Lymph # 1.3 Terry # 0.9 H Eos # 0.1 Baso # 0.08 Sodium 137 Potassium 3.5 L Chloride 100 Carbon Dioxide 27 Anion Gap 13 BUN 7 Creatinine 0.8 Est GFR ( Amer) > 60 Est GFR (Non-Af Amer) > 60 POC Glucose (mg/dL) 120 H Random Glucose 109 Calcium 9.3 Total Bilirubin 0.8 AST 25 ALT 37 Alkaline Phosphatase 49 Total Protein 6.3 Albumin 3.5 Globulin 2.8 Albumin/Globulin Ratio 1.3 07/29/17 07/29/17 11:18 16:56 WBC RBC Hgb Hct MCV MCH MCHC RDW Plt Count MPV Gran % Lymph % (Auto) Terry % (Auto) Eos % (Auto) Baso % (Auto) Gran # Lymph # Terry # Eos # Baso # Sodium Potassium Chloride Carbon Dioxide Anion Gap BUN Creatinine Est GFR ( Amer) Est GFR (Non-Af Amer) POC Glucose (mg/dL) 100 88 Random Glucose Calcium Total Bilirubin AST ALT Alkaline Phosphatase Total Protein Albumin Globulin Albumin/Globulin Ratio Attending/Attestation - Attestation I have personally seen and examined this patient.: Yes I have fully participated in the care of the patient.: Yes I have reviewed all pertinent clinical information: Yes Notes (Text): This is an addendum to GI progress report dictated by Melly Feliciano APN.The patient was seen and examined earlier. Medical records, lab studies, imagings were reviewed. Last 24 hours events reviewed. Agreed with the above treatment plan as outlined in Melly Feliciano APN's notes the with the addition of the following the imaging studies reviewed and discussed with the rn neurosurgical On examination abdomen soft minimal tenderness on deep palpation He's better otherwise Stool for C. difficile toxin negative antigen positive Denies having had any antibiotics History of herpes zoster few months ago Patient did give a history of banding probably and this happened acutely few hours after that patient denies having he had eaten the food . But he did handle it he did not eat. He did not have any symptoms prior to that Patient did give history of occasional abdominal discomfort but never like this episode Clinically is more suggestive of gastroenteritis The etiology of stool for C. difficile is a rather confusing it could be incidental finding but in view of the symptoms it is reasonable to treat it Would consider adding Xifaxan he feels remins symptomatic which could help in gastroenteritis 07/30/17 00:02
--- NOTE | 2017-07-29 16:38 | CP.PCM.DIS ---
Provider - Provider Date of Admission: 07/27/17 19:18 Attending physician: Omar Christianson MD Primary care physician: NO PRIMARY CARE PROVIDER Consults: Dr. Carlene COOK Time Spent in preparation of Discharge (in minutes): 45 Hospital Course - Lab Results Lab Results: Micro Results 07/28/17 15:49 Stool C. difficile Antigen & Toxin A,B (M - Final Most Recent Lab Values WBC 5.7 10^3/ul (4.5-11.0) 07/29/17 06:00 RBC 4.70 10^6/uL (3.5-6.1) 07/29/17 06:00 Hgb 14.1 g/dL (14.0-18.0) 07/29/17 06:00 Hct 43.2 % (42.0-52.0) 07/29/17 06:00 MCV 91.9 fl (80.0-105.0) 07/29/17 06:00 MCH 30.0 pg (25.0-35.0) 07/29/17 06:00 MCHC 32.6 g/dl (31.0-37.0) 07/29/17 06:00 RDW 13.1 % (11.5-14.5) 07/29/17 06:00 Plt Count 245 10^3/uL (120.0-450.0) 07/29/17 06:00 MPV 9.2 fl (7.0-11.0) 07/29/17 06:00 Gran % 57.9 % (50.0-68.0) 07/29/17 06:00 Lymph % (Auto) 22.1 % (22.0-35.0) 07/29/17 06:00 Bradford % (Auto) 16.1 % (1.0-6.0) H 07/29/17 06:00 Eos % (Auto) 2.5 % (1.5-5.0) 07/29/17 06:00 Baso % (Auto) 1.4 % (0.0-3.0) 07/29/17 06:00 Gran # 3.27 (1.4-6.5) 07/29/17 06:00 Lymph # 1.3 (1.2-3.4) 07/29/17 06:00 Bradford # 0.9 (0.1-0.6) H 07/29/17 06:00 Eos # 0.1 (0.0-0.7) 07/29/17 06:00 Baso # 0.08 K/mm3 (0.0-2.0) 07/29/17 06:00 Sodium 137 mmol/L (132-148) 07/29/17 06:00 Potassium 3.5 mmol/L (3.6-5.0) L 07/29/17 06:00 Chloride 100 mmol/L (98-107) 07/29/17 06:00 Carbon Dioxide 27 mmol/L (21-33) 07/29/17 06:00 Anion Gap 13 (10-20) 07/29/17 06:00 BUN 7 mg/dL (7-21) 07/29/17 06:00 Creatinine 0.8 mg/dl (0.8-1.5) 07/29/17 06:00 Est GFR ( Amer) > 60 07/29/17 06:00 Est GFR (Non-Af Amer) > 60 07/29/17 06:00 POC Glucose (mg/dL) 100 mg/dL (65-110) 07/29/17 11:18 Random Glucose 109 mg/dL (70-110) 07/29/17 06:00 Calcium 9.3 mg/dL (8.4-10.5) 07/29/17 06:00 Total Bilirubin 0.8 mg/dL (0.2-1.3) 07/29/17 06:00 AST 25 U/L (17-59) 07/29/17 06:00 ALT 37 U/L (7-56) 07/29/17 06:00 Alkaline Phosphatase 49 U/L (38-126) 07/29/17 06:00 Total Protein 6.3 g/dL (5.8-8.3) 07/29/17 06:00 Albumin 3.5 g/dL (3.0-4.8) 07/29/17 06:00 Globulin 2.8 gm/dL 07/29/17 06:00 Albumin/Globulin Ratio 1.3 (1.1-1.8) 07/29/17 06:00 Amylase 62 U/L (35-125) 07/27/17 12:50 Lipase 27 U/L (23-300) 07/27/17 12:50 Urine Color Yellow (YELLOW) 07/27/17 13:30 Urine Appearance Sl cloudy (CLEAR) 07/27/17 13:30 Urine pH 6.0 (4.7-8.0) 07/27/17 13:30 Ur Specific [place] 1.025 (1.005-1.035) 07/27/17 13:30 Urine Protein 30 mg/dL (<30 mg/dL) H 07/27/17 13:30 Urine Glucose (UA) Negative mg/dL (NEGATIVE) 07/27/17 13:30 Urine Ketones >=80 mg/dL (NEGATIVE) 07/27/17 13:30 Urine Blood Small (NEGATIVE) H 07/27/17 13:30 Urine Nitrate Negative (NEGATIVE) 07/27/17 13:30 Urine Bilirubin Small (NEGATIVE) H 07/27/17 13:30 Urine Urobilinogen 1.0 E.U./dL (<1 E.U./dL) H 07/27/17 13:30 Ur Leukocyte Esterase Negative Alysia/uL (NEGATIVE) 07/27/17 13:30 Urine RBC 2 - 5 /hpf (0-2) 07/27/17 13:30 Urine WBC Negative /hpf (0-6) 07/27/17 13:30 Urine Other Mucus 07/27/17 13:30 - Hospital Course Hospital Course: 52 year old male with a past medical history significant for shingles and hemmorhoids who presents with 3 days of worsening abdominal distension, right sided flank pain, chills, and difficulty passing bowel movements and flatus. He reports his symptoms started on Tuesday after eating home-cooked hamburgers. He reports going to an urgent care on Tuesday and being diagnosed with kidney stones based on his UA. He states he was then recommended to go to an imaging center where he went an obtained an ultrasound that did not identify any stones in the kidney/ureters, and was informed that he likely already passed a kidney stone. He was sent home with Flexeril and an NSAID. His symptoms, however, persisted, and he came to [facility]. He reports having similar episodes of abdominal distension in the past that normally resolved by forcefully passing gas. This time, however, he is far more concerned given his inability to pass gas and new-onset heart burn like symptoms which he has never experienced. He states passing bowel movements, regularly, first thing every morning. He also admits to nausea, decreased appetite, and orange-colored urine. He denies fever, chills, weight-loss, hemotochezia. CT of the abdomen and pelvis with IV contrast showed findings concerning for small bowel obstruction. In the ED, NGT was placed. The patient was kept NPO and kept overnight. A total of 1.4 L drained from the nasogastric tube. Patient was passing flatus and bowel movements. The patient tolerated a clear liquids and full liquid diet. GI was consulted and recommended outpatient endoscopy once the patient completes his 14 day course of oral Vancomycin. The patient's C. difficile antigen and toxin were positive and negative, respectively. The patient was prescribed a 14 day course of Vancomycin. - Date & Time of H&P Date of H&P: 07/29/17 Time of H&P: 16:51 Discharge Exam - Head Exam Head Exam: ATRAUMATIC, NORMOCEPHALIC - Eye Exam Eye Exam: EOMI, Normal appearance - ENT Exam ENT Exam: Mucous Membranes Moist, Normal Oropharynx - Neck Exam Neck exam: Normal Inspection - Respiratory Exam Respiratory Exam: Clear to PA & Lateral, NORMAL BREATHING PATTERN. absent: Accessory Muscle Use - GI/Abdominal Exam GI & Abdominal Exam: Distended (mildly), Normal Bowel Sounds. absent: Rebound - Extremities Exam Extremities exam: normal inspection, pedal pulses present - Back Exam Back exam: NORMAL INSPECTION. absent: CVA tenderness (L), CVA tenderness (R) - Neurological Exam Neurological exam: Alert, CN II-XII Intact, Oriented x3 - Psychiatric Exam Psychiatric exam: Normal Affect, Normal Mood - Skin Skin Exam: Dry, Intact, Normal Color, Warm Discharge Plan - Discharge Medications Prescriptions: Vancomycin HCl [Vancocin HCl] 250 mg PO QID #56 capsule - Follow Up Plan Condition: STABLE Disposition: HOME/ ROUTINE Instructions: Acute Abdominal Pain (DC), Acute Abdominal Pain (GEN) Additional Instructions: Patient to return to the ED for any worsening of symptoms. Patient to follow up with Dr. Concepcion as an outpatient. Patient to take Vancomycin 250 mg four times a day for the next fourteen days. Referrals: PCP,NO [Primary Care Provider] -
[2017-07-29 18:11] VITALS: BP 126/85; PULSE 79; TEMP 99.2; O2SAT 99
[2017-07-29] MEDS ORDERED: Influenza Vaccine 60 mcg/0.5 mL SYR (4YR UP) IM ONE (18:15)
== END 2017-07-29 19:34 | disposition home or self-care (01) | DRG 390 ==
LOC: ED 10:47 → ERH 19:18 → 3RSO 20:55
PROVIDERS: ADMIT Surgery; ATTEND Surgery
DX: K56.600 Partial intestinal obstruction, unspecified as to cause (principal); K21.9 Gastro-esophageal reflux disease without esophagitis; N20.0 Calculus of kidney; K64.9 Unspecified hemorrhoids; Z86.19 Personal history of other infectious and parasitic diseases

== ENCOUNTER 2017-09-16 12:15 | Day surgery (SDC) | payer BC ==
[2017-09-08 10:57] VITALS: BMI 26.5
[2017-09-16] MEDS ORDERED: Propofol 10 mg/ml Inj (20 ML) ONE (13:09)
[2017-09-16] MEDS ORDERED: Sodium Chloride 0.9% 1,000 ML IV SCH (13:30)
[2017-09-16 14:28] VITALS: RESP 15; O2SAT 99
[2017-09-16 15:48] VITALS: BP 123/73; PULSE 72; TEMP 98
== END 2017-09-16 16:15 | disposition home or self-care (01) ==
LOC: ENDO 12:15
PROVIDERS: ATTEND Internal Medicine Gastroenterology
DX: K29.50 Unspecified chronic gastritis without bleeding (principal); R10.13 Epigastric pain; K31.7 Polyp of stomach and duodenum
CPT/HCPCS: 43239; 88305; 88342; J2001; J2704; J7040 ×2

== ENCOUNTER 2018-02-20 03:21 | Emergency (ER) | payer BC ==
[2018-02-20 03:24] VITALS: BMI 26.6
[2018-02-20 03:31] VITALS: RESP 16
--- NOTE | 2018-02-20 03:51 | ED PDOC ---
"Arrival/HPI - General Historian: Patient, Spouse - History of Present Illness Time/Duration: 1-3 hours Symptom Onset: Sudden Symptom Course: Unchanged, Worsening Quality: Pressure Severity Level: 5 Activities at Onset: Rest Context: Home - General Chief Complaint: Chest Pain Time Seen by Provider: 02/20/18 03:23 - History of Present Illness Narrative History of Present Illness (Text): 02/20/18 03:47 Patient is a 52 year old male with PMH of SBO (treated with NG suction Jul 2017) , C-diff (also in Jul 2017), CHUCK (no longer using CPAP), and shingles who presents to ED with SOB for the last two hours. He woke up suddenly at 0230 earlier this morning with sudden onset SOB. He states that it feels as if he's not able to catch his breath. He also endorses worsening chest tightness which he describes as if something is sitting on his chest. He states that he has been unable to even drink a glass of water without feeling short of breath. He and his state that they were eating dinner last night when he had a brief choking spell and they are unsure if this is related. They also admit to recently traveling on an [address] from [place]. They came back on Tuesday. He also admits to a dry cough since this episode started but otherwise denies fever, chills, nausea/vomiting/diarrhea, peripheral edema, calf tenderness, or diaphoresis. (Jorge Westfall) Past Medical History - Provider Review Nursing Documentation Reviewed: Yes - Infectious Disease Hx of Infectious Diseases: None - Cardiac Hx Pacemaker: No - Pulmonary Hx Respiratory Disorders: No - Neurological Hx Paralysis: No - HEENT Hx HEENT Disorder: No - Renal Hx Renal Disorder: Yes Hx Kidney Stones: Yes - Endocrine/Metabolic Hx Endocrine Disorders: No - Hematological/Oncological Hx Blood Transfusions: No - Integumentary Hx Dermatological Disorder: Yes Other/Comment: 07-27-17 scarring from shingles 06-19 - Musculoskeletal/Rheumatological Hx Musculoskeletal Disorders: No - Gastrointestinal Hx Gastrointestinal Disorders: Yes (fluid filled loops of small bowel in the stomach.ileus?enteritis?) - Genitourinary/Gynecological Hx Genitourinary Disorders: No - Psychiatric Hx Emotional Abuse: No Hx Physical Abuse: No Hx Substance Use: No - Anesthesia Hx Anesthesia: Yes Hx Anesthesia Reactions: No Hx Malignant Hyperthermia: No - Suicidal Assessment Feels Threatened In Home Enviroment: No Family/Social History - Physician Review Nursing Documentation Reviewed: Yes Family/Social History: Hypertension (father), CAD/SD (father), Other (mother had SBO) Smoking Status: Never Smoked Hx Alcohol Use: Yes (SOCIALLY) Hx Substance Use: No Allergies/Home Meds Allergies/Adverse Reactions: Allergies No Known Allergies Allergy (Verified 09/08/17 10:57) Home Medications: Home Meds Medication Instructions Recorded Confirmed No Known Home Med 09/08/17 02/20/18 Review of Systems - Review of Systems Constitutional: absent: Fatigue, Fevers Eyes: absent: Vision Changes ENT: absent: Sore Throat, Rhinorrhea Respiratory: SOB, Cough. absent: Sputum, Wheezing Cardiovascular: Chest Pain. absent: Edema, PARDO Gastrointestinal: absent: Abdominal Pain, Nausea, Vomiting Genitourinary Male: absent: Dysuria, Frequency Musculoskeletal: absent: Arthralgias Skin: absent: Rash, Pruritis Neurological: absent: Headache, Dizziness, Speech Changes Endocrine: absent: Diaphoresis Hemo/Lymphatic: absent: Adenopathy Psychiatric: absent: Anxiety, Depression Physical Exam Vital Signs Reviewed: Yes Temperature: Afebrile Blood Pressure: Hypertensive Pulse: Regular Respiratory Rate: Normal Appearance: Positive for: Non-Toxic, Uncomfortable Pain Distress: Moderate Mental Status: Positive for: Alert and Oriented X 3 - Systems Exam Head: Present: Atraumatic, Normocephalic Pupils: Present: PERRL Extroacular Muscles: Present: EOMI Conjunctiva: Present: Normal Ears: Present: Normal Mouth: Present: Moist Mucous Membranes Pharnyx: Present: Normal. No: ERYTHEMA, EXUDATE Nose (External): Present: Atraumatic Neck: Present: Normal Range of Motion. No: JVD Respiratory/Chest: Present: Clear to Auscultation. No: Wheezes, Rales, Rhonchi Cardiovascular: Present: Regular Rate and Rhythm, Normal S1, S2. No: Murmurs, Rub, Gallop Abdomen: Present: Distention (mild distention greatest in mid-epigastric region) . No: Tenderness, Rebound, Guarding, McBurney's Point Tender, Mass/Organomegaly Back: Present: Normal Inspection Upper Extremity: Present: Normal Inspection. No: Cyanosis, Edema Lower Extremity: Present: Normal Inspection. No: Edema Neurological: Present: Speech Normal Skin: Present: Warm, Dry Psychiatric: Present: Alert, Oriented x 3 Vital Signs Temp Pulse Resp BP Pulse Ox 02/20/18 06:44 68 16 155/90 H 99 02/20/18 06:06 67 16 149/89 98 02/20/18 03:30 97.9 F 69 16 154/97 H 95 Medical Decision Making - Lab Interpretations I have reviewed the lab results: Yes Interpretation: Abnormal lab values (D-dimer elevated, CTA negative for PE) - RAD Interpretation Nuclear Operations Specialist: ED Physician, Radiologist - EKG Interpretation Interpreted by ED Physician: Yes Type: 12 lead EKG Comparison: No previous EKG avail. ED Course and Treatment: Impression: In agreement with resident note, which includes further HPI details. Patient was seen and evaluated with resident, came up with plan and treatment together. Pt, whose past medical history includes SBO, presented for shortness of breath for the last few hours. Plan: -- EKG -- Chest X-ray -- Labs, troponin, D-dimer -- Urinalysis -- Aspirin -- Protonix -- Reassess and disposition (Jose Alberto Mcclelland) 02/20/18 03:56 -Patient with new onset SOB with chest tightness -Will get CBC, CMP, Troponin, D-dimer, CXR -EKG without ST or T wave changes, normal sinus rhythm -ASA 325 given -Protonix 40 mg IVP given for bloating/discomfort 02/20/18 04:02 -Patient admitted to a history of CHUCK and prior CPAP usage but states he has not used it in years 02/20/18 05:44 -D-dimer noted to be elevated -CTA chest PE protocol ordered 02/20/18 06:48 -CTA negative for PE -All other labs, including troponins are normal -Patient states he feels better and would rather go home at this time -Will discharge with rx for carafate suspension -Encourage follow up with PMD for elevated BP readings (Jorge Westfall) - Lab Interpretations Lab Results: 02/20/18 03:37 02/20/18 03:37 Lab Results 02/20/18 03:37: PT 11.0, INR 0.96, APTT 35.5, D-Dimer, Quantitative 601 H 02/20/18 03:37: Sodium 141, Potassium 3.7, Chloride 103, Carbon Dioxide 25, Anion Gap 17, BUN 17, Creatinine 0.8, Est GFR ( Amer) > 60, Est GFR (Non- Af Amer) > 60, Random Glucose 105, Calcium 9.7, Total Bilirubin 0.5, AST 25, ALT 40, Alkaline Phosphatase 93, Troponin I < 0.01, Total Protein 7.6, Albumin 4.6, Globulin 3.0, Albumin/Globulin Ratio 1.5 02/20/18 03:37: WBC 8.6 D, RBC 5.31, Hgb 16.2 D, Hct 45.9, MCV 86.4 D, MCH 30.5, MCHC 35.3, RDW 13.7, Plt Count 294, MPV 9.0, Gran % 50.9, Lymph % (Auto) 39.8 H, [place] % (Auto) 6.9 H, Eos % (Auto) 2.2, Baso % (Auto) 0.2, Gran # 4.39, Lymph # (Auto) 3.4, [place] # (Auto) 0.6, Eos # (Auto) 0.2, Baso # (Auto) 0.02 - RAD Interpretation Narrative RAD Interpretations (Text): 02/20/18 04:08 CXR without acute findings 02/20/18 06:48 CTA PE Protocol FINDINGS: Pulmonary arteries: No acute findings. No pulmonary embolism. Aorta: No acute findings. No thoracic aortic aneurysm. Lungs: No acute findings. No mass. No consolidation. Pleural space: No acute findings. No significant effusion. No pneumothorax. Heart: No acute findings. No cardiomegaly. No significant pericardial effusion. No evidence of RV dysfunction. Bones/joints: No acute fracture. No dislocation. Soft tissues: No acute findings. Lymph nodes: No acute findings. No enlarged lymph nodes. ANAND ZARIA | Preliminary Radiology Report FINISHER CARD TENDER (QA) DISCREPANCY? If there is a discrepancy between the preliminary and final interpretation, please notify [facility] via [email or web address]. If you do not have access to our QA portal, call our QA team at [phone] CONFIDENTIALITY STATEMENT This report is intended only for the use of the referring physician, and only in accordance with law, If you received this in error, call [phone] Page 2 of 2 IMPRESSION: Normal chest CTA. No pulmonary embolism. (Jorge Westfall) Radiology Orders: 02/20/18 03:44 CHEST PORTABLE [RAD] Stat 02/20/18 05:41 ANGIO CHEST PE PROTOCOL [CT] Stat - EKG Interpretation EKG Interpretation (Text): 02/20/18 04:08 Normal sinus rhythm without ST or T wave changes (Jorge Westfall) - Medication Orders Current Medication Orders: Discontinued Medications Aspirin (Aspirin) 325 mg PO STAT STA Stop: 02/20/18 03:47 Last Admin: 02/20/18 04:09 Dose: 325 mg Ondansetron HCl (Zofran Inj) 4 mg IVP STAT STA Stop: 02/20/18 04:59 Last Admin: 02/20/18 05:23 Dose: 4 mg IVP Administration Document 02/20/18 05:23 IT (Rec: 02/20/18 05:23 IT [id number]) Charges for Administration # of IVP Administrations 1 Pantoprazole Sodium (Protonix Inj) 40 mg IVP STAT STA Stop: 02/20/18 03:55 Last Admin: 02/20/18 04:09 Dose: 40 mg IVP Administration Document 02/20/18 04:09 IT (Rec: 02/20/18 04:09 IT [id number]) Charges for Administration # of IVP Administrations 1 Disposition/Present on Arrival - Present on Arrival Any Indicators Present on Arrival: No History of DVT/PE: No History of Uncontrolled Diabetes: No Urinary Catheter: No History of Decub. Ulcer: No History Surgical Site Infection Following: None - Disposition Have Diagnosis and Disposition been Completed?: No Disposition Time: 06:50 Patient Plan: Discharge - Disposition Diagnosis: Abdominal pain, GERD (gastroesophageal reflux disease) Disposition: HOME/ ROUTINE Condition: GOOD Discharge Instructions (ExitCare): Acid Reflux (Gastroesophageal Reflux Disease ), Adult (DC) Referrals: Renée Dueñas MD [Primary Care Provider] - Follow up with primary Forms: Aneumed (Tajik)"
[2018-02-20 04:02] LABS: BASO # 0.02 K/mm3 (0.0-2.0); BASO % 0.2 % (0.0-3.0); EOS # 0.2 (0.0-0.7); EOS % 2.2 % (1.5-5.0); GRAN # 4.39 (1.4-6.5); GRAN % 50.9 % (50.0-68.0); LYMPH # 3.4 (1.2-3.4); LYMPH % 39.8 % (22.0-35.0); MEAN CORPUSCULAR HEMOGLOBIN 30.5 pg (25.0-35.0); MEAN CORPUSCULAR HGB CONC 35.3 g/dl (31.0-37.0); MONO # 0.6 (0.1-0.6); MONO % 6.9 % (1.0-6.0); RBC 5.31 10^6/uL (3.5-6.1); RED CELL DISTRIBUTION WIDTH 13.7 % (11.5-14.5)
[2018-02-20 04:06] LABS: ALB/GLOB RATIO 1.5 (1.1-1.8); ALBUMIN 4.6 g/dL (3.0-4.8); ALT/SGPT 40 U/L (7-56); AST/SGOT 25 U/L (17-59); BLOOD UREA NITROGEN 17 mg/dL (7-21); CALCIUM 9.7 mg/dL (8.4-10.5); GFR AFRICAN-AMERICAN > 60; GFR NON-AFRICAN AMERICAN > 60
[2018-02-20 04:14] LABS: HEMOGLOBIN 16.2 g/dL (14.0-18.0); MEAN CELL VOLUME 86.4 fl (80.0-105.0); WHITE BLOOD COUNT 8.6 10^3/ul (4.5-11.0)
[2018-02-20 04:17] LABS: TROPONIN I < 0.01 ng/mL
[2018-02-20 05:39] LABS: INR 0.96; PARTIAL THROMBOPLASTIN TIME 35.5 Seconds (25.1-36.5)
[2018-02-20 06:45] VITALS: BP 155/90; PULSE 68; O2SAT 99
[2018-02-20] MEDS ORDERED: Sucralfate 1 gm/10 ml Oral Susp UD PO STA (06:48)
[2018-02-20 07:06] VITALS: TEMP 98.2
--- NOTE | 2018-02-20 08:45 | RAD ---
Date of service: 02/20/2018 HISTORY: CP, SOB COMPARISON: No prior. FINDINGS: LUNGS: The lungs are well inflated and clear. PLEURA: No significant pleural effusion identified, no pneumothorax apparent. CARDIOVASCULAR: Normal. OSSEOUS STRUCTURES: No significant abnormalities. VISUALIZED UPPER ABDOMEN: Normal. OTHER FINDINGS: None. IMPRESSION: No active pulmonary disease.
--- NOTE | 2018-02-20 10:16 | CT ---
Date of service: 02/20/2018 PROCEDURE: CT Chest with contrast (Pulmonary Angiogram) HISTORY: sob COMPARISON: None available. TECHNIQUE: Axial computed tomography images were obtained of the chest in the pulmonary arterial phase of enhancement. Coronal and sagittal reformatted images were created and reviewed. Intravenous contrast dose: 150 cc of Omni 350 Radiation dose: Total exam DLP = 397 mGy-cm. This CT exam was performed using one or more of the following dose reduction techniques: Automated exposure control, adjustment of the mA and/or kV according to patient size, and/or use of iterative reconstruction technique. FINDINGS: PULMONARY ARTERIES: Unremarkable. No pulmonary embolism. AORTA: No acute findings. No thoracic aortic aneurysm. LUNGS: Unremarkable. No nodule, mass or pulmonary consolidation. PLEURAL SPACES: Unremarkable. No effusion or pneumothorax. HEART: Unremarkable. No cardiomegaly. No significant pericardial effusion. LYMPH NODES: No lymphadenopathy. BONES, CHEST WALL: Unremarkable. No fracture or destructive lesion OTHER FINDINGS: The report concurs with the preliminary [facility] report IMPRESSION: Unremarkable CT pulmonary angiogram. No pulmonary embolus.
--- NOTE | 2018-02-20 21:33 | CARD ---
APPROVED REPORT Date of service: 02/20/2018 EKG Measurement Heart [id number] <Conclusion> Normal sinus rhythm Normal ECG
== END 2018-02-20 07:06 | disposition home or self-care (01) ==
LOC: ED 03:21
DX: K21.9 Gastro-esophageal reflux disease without esophagitis (principal); R10.9 Unspecified abdominal pain
CPT/HCPCS: 71045; 71275; 80053; 84484; 85025; 85378; 85610; 85730; 93005; 96374; 96375; 99284; C9113; J2405; Q9967